=== PATIENT | male | born 1980 | race Caucasian/White ===

== ENCOUNTER 2019-01-19 10:17 | Outpatient (REF) | payer OTHER, SELFPAY ==
[2019-01-19 21:32] LABS: Anion Gap 8.5 mmol/L (3-11); BUN 14 mg/dL (7-18); CO2 28.5 mmol/L (21.0-32.0); CREATININE 0.88 mg/dL (0.70-1.30); Calcium 9.2 mg/dL (8.5-10.1); Chloride 101 mmol/L (98-107); Glucose 91 mg/dL (70-100); Potassium 4.5 mmol/L (3.5-5.1); Sodium 138 mmol/L (136-145)
[2019-01-19 21:33] LABS: Hemoglobin A1C 5.1 % (4.5-6.2)
== END 2019-01-19 10:37 ==
LOC: NCHCN 10:17
PROVIDERS: PCP Family Medicine; Visit Provider Family Medicine
DX: I10 Essential (primary) hypertension (principal)
CPT/HCPCS: 80048; 83036

== ENCOUNTER 2019-02-20 16:00 | Outpatient (REF) | payer OTHER, SELFPAY ==
--- NOTE | 2019-02-20 16:00 | SKI_PTH ---
PATIENT: Michael Borjas LOC: [facility] U#:[id number] AGE/SX: 38/M ROOM: RE02/20/[address]: Janice Mercado : 1980 BED: DIS: 02/20/2019 SPEC #: [id number] RECD: 02/21/19 12:12 STATUS: TRACY REQ #: [id number] STACY: 02/20/19 16:[address]: Janice Mercado DEPT: Surgical Specimen RECD BY: Hilda Rivers ENTERED: 02/21/19 12:13 SP TYPE: ASHWINI LINTON DR: Sukumar Bryant Tissues: 1 - SKIN BIOPSY(SHAVE/PUNCH) Procedures: IMMUNOPEROXIDASE STAIN SKIN LEVEL 4 Comments: [id number]
== END 2019-02-20 16:20 ==
LOC: NCHCN 16:00
PROVIDERS: PCP Family Medicine; Visit Provider Family Medicine
DX: D48.1 Neoplasm of uncertain behavior of connective and other soft tissue (principal)
CPT/HCPCS: 88305; 88361

== ENCOUNTER 2020-02-15 12:26 | Outpatient (REF) | payer OTHER, SELFPAY ==
[2020-02-15 21:53] LABS: Anion Gap 6.8 mmol/L (3-11); BUN 16 mg/dL (7-18); CO2 28.2 mmol/L (21.0-32.0); Calcium 9.2 mg/dL (8.5-10.1); Calculated LDL 119 mg/dL (<100); Chloride 103 mmol/L (98-107); Cholesterol 180 mg/dL (<200); Glucose 98 mg/dL (74-106); HDL Cholesterol 51 mg/dL (40-60); Potassium 4.3 mmol/L (3.5-5.1); Sodium 138 mmol/L (136-145); Triglyceride 50 mg/dL (<150)
== END 2020-02-15 12:46 ==
LOC: NCHCN 12:26
PROVIDERS: PCP Family Medicine; Visit Provider Family Medicine
DX: I10 Essential (primary) hypertension (principal); E66.9 Obesity, unspecified
CPT/HCPCS: 80048; 80061

== ENCOUNTER 2021-02-26 15:12 | Outpatient (REF) | payer OTHER, SELFPAY ==
[2021-02-26 20:35] LABS: Anion Gap 9.3 mmol/L (3-11); BUN 20 mg/dL (7-18); CO2 25.7 mmol/L (21.0-32.0); Chloride 107 mmol/L (98-107); Glucose 101 mg/dL (74-106); Potassium 4.2 mmol/L (3.5-5.1); Sodium 142 mmol/L (136-145)
== END 2021-02-26 15:13 | disposition home or self-care (01) ==
LOC: NCHCN 15:12
PROVIDERS: PCP Family Medicine; Visit Provider Family Medicine
DX: Z00.00 Encounter for general adult medical examination without abnormal findings (principal); I10 Essential (primary) hypertension
CPT/HCPCS: 80048

== ENCOUNTER 2022-02-25 09:36 | Outpatient (REF) | payer OTHER, SELFPAY ==
[2022-02-25 16:39] LABS: Anion Gap 8.9 mmol/L (3-11); BUN 16 mg/dL (7-18); CO2 26.1 mmol/L (21.0-32.0); CREATININE 0.9 mg/dL (0.70-1.30); Calcium 9.1 mg/dL (8.5-10.1); Chloride 104 mmol/L (98-107); Glucose 99 mg/dL (74-106); Potassium 4.4 mmol/L (3.5-5.1); Sodium 139 mmol/L (136-145)
[2022-02-26 01:03] LABS: COVID-19 RT-PCR UVMMC Result Negative (Negative)
== END 2022-02-25 09:37 | disposition home or self-care (01) ==
LOC: NCHCN 09:36
PROVIDERS: Registered Nurse; PCP Family Medicine; Visit Provider Family Medicine
DX: Z00.00 Encounter for general adult medical examination without abnormal findings (principal); I10 Essential (primary) hypertension; E66.9 Obesity, unspecified; Z13.220 Encounter for screening for lipoid disorders; J06.9 Acute upper respiratory infection, unspecified; Z20.822 Contact with and (suspected) exposure to COVID-19
CPT/HCPCS: 80048; U0003

== ENCOUNTER 2023-05-06 18:49 | Outpatient (REF) | payer OTHER, SELFPAY ==
[2023-05-06 16:37] LABS: ALT 32 U/L (16-63); AST 26 U/L (15-37); Alkaline Phosphatase 71 U/L (46-116); Anion Gap 8.7 mmol/L (3-11); BUN 16 mg/dL (7-18); Bilirubin, Total 1.1 mg/dL (0.2-1.0); CO2 27.3 mmol/L (21.0-32.0); Calcium 9.2 mg/dL (8.5-10.1); Calculated LDL 114 mg/dL (<100); Chloride 107 mmol/L (98-107); Cholesterol 181 mg/dL (<200); Estimated GFR 96.37 (mL/min/1.73m2); Glucose 97 mg/dL (74-106); HDL Cholesterol 54 mg/dL (40-60); Potassium 4.7 mmol/L (3.5-5.1); Sodium 143 mmol/L (136-145); Total Protein 7.3 g/dL (6.4-8.2); Triglyceride 67 mg/dL (<150)
--- OUTSIDE RECORDS SUMMARY | 2023-05-06 18:55 | XMS_ITS | CCD ---
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 Allergies Allergy Code Allergy Type Reaction Status No Known Drug Allergies 0 No known drug allergies Active Procedures Unknown or Not Available. History of Immunizations Unknown or Not Available. Problems Unknown or Not Available. Results Unknown or Not Available. Active Medications Unknown or Not Available. Medications Administered During Visit Unknown or Not Available. Encounters Encounter Diagnosis Diagnosis Code Start Date Other intervertebral disc degeneration, lumbar r egion [id number] 06/11/2022 Social History Smoking Status Code Start Date End Date Never smoker [id number] Patient Decision Aids Unknown or Not Available. Discharge Instructions You were admitted to [facility] on 06/11/2022 12:37 with a principal diagnosis of Other intervertebral disc degeneration, lumbar region You were discharged from [facility] on 06/11/2022 12:37 Should you have any questions prior to discharge, please contact a member of your healthcare team. If you have left the hospital and have any questions, please contact your primary care physician. Chief Complaint and Reason For Visit Chief Complaint Date of Onset LOW BACK PAIN Function Status Unknown or Not Available. Plan of Care Unknown or Not Available. Referral/Transition of Care Unknown or Not Available.
== END 2023-05-06 18:50 | disposition home or self-care (01) ==
LOC: NCHCN 18:49
PROVIDERS: PCP Family Medicine; Visit Provider Family Medicine
DX: I10 Essential (primary) hypertension (principal); E66.9 Obesity, unspecified; Z13.220 Encounter for screening for lipoid disorders
CPT/HCPCS: 80053; 80061

== ENCOUNTER 2024-05-15 11:51 | Outpatient (REF) | payer OTHER, SELFPAY ==
[2024-05-15 15:31] LABS: Anion Gap 7.2 mmol/L (3-11); BUN 15 mg/dL (7-18); CO2 27.8 mmol/L (21.0-32.0); Calcium 9.5 mg/dL (8.5-10.1); Chloride 105 mmol/L (98-107); Estimated GFR 95.77 (mL/min/1.73m2); Glucose 85 mg/dL (74-106); Potassium 4.4 mmol/L (3.5-5.1); Sodium 140 mmol/L (136-145)
[2024-05-15 16:18] LABS: Hemoglobin A1C 5.1 % (<5.7)
== END 2024-05-15 11:52 | disposition home or self-care (01) ==
LOC: NCHCN 11:51
PROVIDERS: PCP Family Medicine; Visit Provider Family Medicine
DX: Z00.00 Encounter for general adult medical examination without abnormal findings (principal)
CPT/HCPCS: 80048; 83036

== ENCOUNTER 2025-02-05 19:01 | Outpatient (REF) | payer OTHER, SELFPAY ==
[2025-02-05 15:22] LABS: Abs Immature Grans 0.02 10^3/uL (0.0-0.06); Absolute Basophil Count 0.02 10^3/uL (0.0-0.2); Absolute Eosinophil Count 0.06 10^3/uL (0.0-0.7); Absolute Lymphocyte Count 1.74 10^3/uL (1.2-3.4); Absolute Monocyte Count 0.45 10^3/uL (0.1-0.8); Absolute Neutrophil Count 3.67 10^3/uL (1.2-6.7); Basophils % 0.3 %; HCT 47.3 % (40.0-50.0); HGB 16.7 g/dL (13.5-17.5); Immature Grans % 0.3 %; Lymphocytes % 29.2 %; MCH 28.9 pg (27.0-33.0); MCHC 35.3 % (32.0-36.0); MCV 82 fL (80-95); MPV 9.7 fL (8.0-11.0); Monocytes % 7.6 %; Neutrophils % 61.6 %; Platelet Count 224 10^3/uL (130-400); RBC 5.77 10^6/uL (4.36-5.78); RDW 12.8 % (11.8-14.1); RDW-SD 37.6 fL; WBC 5.96 10^3/uL (4.4-10.8)
[2025-02-05 15:56] LABS: Iron 65 ug/dL (65-175); Total Iron Binding Capacity 301 ug/dL (250-450); Transferrin Sat 22 % (20-55)
[2025-02-05 16:43] LABS: ALT 25 U/L (16-63); AST 20 U/L (15-37); Albumin 4.3 g/dL (3.4-5.0); Alkaline Phosphatase 92 U/L (46-116); BUN 15 mg/dL (7-18); Bilirubin, Total 0.7 mg/dL (0.2-1.0); CREATININE 0.9 mg/dL (0.70-1.30); Calcium 9.5 mg/dL (8.5-10.1); Chloride 105 mmol/L (98-107); Estimated GFR 108.01 (mL/min/1.73m2); Ferritin 57 ng/mL (26-388); Glucose 94 mg/dL (74-106); Potassium 4.5 mmol/L (3.5-5.1); Sodium 139 mmol/L (136-145); TSH (W/Ref FT4) 1.52 uIU/mL (0.36-3.74); Total Protein 7.6 g/dL (6.4-8.2); Vitamin D 25 Total 21 ng/mL (30-100)
== END 2025-02-05 19:02 | disposition home or self-care (01) ==
LOC: NCHCN 19:01
PROVIDERS: PCP Family Medicine; Visit Provider Family Medicine
DX: R53.82 Chronic fatigue, unspecified (principal); E61.1 Iron deficiency
CPT/HCPCS: 80053; 82306; 82728; 83540; 83550; 84443; 85025